=== PATIENT | female | born 1970 | race Caucasian/White ===

== ENCOUNTER 2018-05-04 13:58 | Emergency (ER) | payer BC, OTHER ==
[2018-05-04 14:17] VITALS: RESP 18; TEMP 97.8
[2018-05-04] MEDS ORDERED: SODIUM CHLORIDE 0.9% 1,000 ML IV STA (14:47)
[2018-05-04] MEDS ORDERED: KETOROLAC 30 MG/ML 1 ML VIAL IVP STA (14:47)
--- NOTE | 2018-05-04 14:54 | ED ---
Abdominal Pain HPI - General Chief Complaint: Abdominal Pain Stated Complaint: Pelvic pain Time Seen by Provider: 05/04/18 14:31 Source: patient, RN notes reviewed Mode of arrival: wheelchair Limitations: no limitations - History of Present Illness Initial Comments: This is a 47-year-old female who presents to the emergency department with chief complaint of lower abdominal/pelvic pain. Patient states on Thursday she developed lower abdominal pain. She states that it starts in the hip region and radiates to the groin. Pain is described as a sharp and stabbing. Today, while driving to work patient states that the pain became excruciating and she developed a pressure like sensation and burning to the vaginal area. She states it feels like "something is falling out, it feels like I'm giving . " She denies any fevers or chills, chest pain or shortness of breath, nausea or vomiting, diarrhea. Patient does report a history of total hysterectomy and appendectomy. Patient denies any medical issues. - Related Data Home Medications Medication Instructions Recorded Confirmed Estrogens, Conjugated [Premarin] 1.25 mg PO HS 05/04/18 05/04/18 Lisdexamfetamine Dimesylate 40 mg PO QAM 05/04/18 05/04/18 [Vyvanse] lamoTRIgine [LaMICtal] 100 mg PO HS 05/04/18 05/04/18 Allergies Allergy/AdvReac Type Severity Reaction Status Date / Time No Known Allergies Allergy Verified 05/04/18 14:50 Review of Systems ROS Statement: Those systems with pertinent positive or pertinent negative responses have been documented in the HPI. ROS Other: All systems not noted in ROS Statement are negative. Past Medical History Past Medical History: No Reported History History of Any Multi-Drug Resistant Organisms: None Reported Past Surgical History: Appendectomy, Hysterectomy Additional Past Surgical History / Comment(s): thyroid Past Psychological History: ADD/ADHD, Anxiety, Depression Smoking Status: Never smoker Past Alcohol Use History: Occasional Past Drug Use History: None Reported General Exam - General Exam Comments Initial Comments: General: Awake and alert, well-developed; in apparent distress due to pain. Patient is curled up in the position lying on her left side. is at bedside. HEENT: Head atraumatic, normocephalic. Pupils are equal, round and reactive to light. Extraocular movements intact. Oropharynx moist without erythema or exudate. Neck: Supple. Normal ROM. Cardiovascular: Regular rate and rhythm. No murmurs, rubs or gallops. Chest symmetrical. Respiratory: Lungs clear to auscultation bilaterally. No wheezes, rales or rhonchi. Normal respiratory effort with no use of accessory muscles. Abdomen: Soft, non-distended. Tenderness on palpation of right lower quadrant and suprapubic region with guarding. No rigidity. Hyperactive bowel sounds in all 4 quadrants. Musculoskeletal: Normal ROM, no tenderness bilateral upper and lower extremities. Skin: [place], warm and dry without rashes or lesions. Neurological: Alert and oriented x3. CN II-XII grossly intact. Speech is fluent and answers are appropriate. No focal neuro deficits. Psychiatric: Normal mood and affect. No overt signs of depression or anxiety noted. Limitations: no limitations External exam: Present: normal external exam. Absent: erythema, swelling, lesions, lacerations Speculum exam: Present: vaginal discharge (white, thin ). Absent: erythema, vaginal bleeding Course Vital Signs 05/04/18 14:12 Temperature 97.8 F Pulse Rate 75 Respiratory 18 Rate Blood Pressure 113/64 O2 Sat by Pulse 100 Oximetry Medical Decision Making - Medical Decision Making This is a 47-year-old female who presents to the emergency department with chief complaint of right-sided pelvic pain. Patient states pain has been present since Thursday and it worsened today. She reports pressure sensation to the vagina. On physical examination, there is exquisite tenderness on palpation of the right lower quadrant and suprapubic regions. Patient does have history of total hysterectomy and appendectomy. Speculum exam and bimanual revealed normal vaginal tissue with a thin white discharge and tenderness on palpation of the right vaginal wall. CBC, CMP and UA revealed no significant abnormalities. Patient was initially sent to the emergency department for evaluation of this pain and hematuria. Her primary care provider ordered an outpatient computed tomography scan of the abdomen and pelvis as well as an ultrasound of the renals and bladder. These revealed no significant abnormalities and no evidence of kidney stones. This case has been discussed in detail with attending physician, Dr. Miller. He was in contact with the radiologist who read the computed tomography scan report. The CT was again reviewed. Still, no abnormalities are noted. Patient does report improvement of symptoms with Toradol. Vital signs have been stable and she is in no acute distress. She will be discharged home at this time. Recommendation is to follow up with primary care provider as well as her [facility] within 1-2 days. She is in agreement with plan and voices understanding. All questions have been answered. - Lab Data Result diagrams: 05/04/18 15:00 05/04/18 15:00 Lab Results 05/04/18 05/04/18 05/04/18 Range/Units 15:00 15:00 15:00 WBC 5.4 (3.8-10.6) k/uL RBC 4.14 (3.80-5.40) m/uL Hgb 13.5 (11.4-16.0) gm/dL Hct 41.2 (34.0-46.0) % MCV 99.6 (80.0-100.0) fL MCH 32.6 (25.0-35.0) pg MCHC 32.8 (31.0-37.0) g/dL RDW 12.0 (11.5-15.5) % Plt Count 312 (150-450) k/uL Neutrophils % 51 % Lymphocytes % 39 % Monocytes % 6 % Eosinophils % 2 % Basophils % 0 % Neutrophils # 2.8 (1.3-7.7) k/uL Lymphocytes # 2.1 (1.0-4.8) k/uL Monocytes # 0.3 (0-1.0) k/uL Eosinophils # 0.1 (0-0.7) k/uL Basophils # 0.0 (0-0.2) k/uL Sodium 140 (137-145) mmol/L Potassium 4.3 (3.5-5.1) mmol/L Chloride 104 (98-107) mmol/L Carbon Dioxide 25 (22-30) mmol/L Anion Gap 11 mmol/L BUN 12 (7-17) mg/dL Creatinine 0.69 (0.52-1.04) mg/dL Est GFR (CKD-EPI)AfAm >90 (>60 ml/min/1.73 sqM) Est GFR (CKD-EPI)NonAf >90 (>60 ml/min/1.73 sqM) Glucose 84 (74-99) mg/dL Calcium 9.7 (8.4-10.2) mg/dL Total Bilirubin 0.7 (0.2-1.3) mg/dL AST 26 (14-36) U/L ALT 17 (9-52) U/L Alkaline Phosphatase 44 (38-126) U/L Total Protein 7.4 (6.3-8.2) g/dL Albumin 4.4 (3.5-5.0) g/dL Amylase 83 (30-110) U/L Lipase 173 (23-300) U/L Urine Color Yellow Urine Appearance Clear (Clear) Urine pH 7.5 (5.0-8.0) Ur Specific [place] 1.013 (1.001-1.035) Urine Protein Negative (Negative) Urine Glucose (UA) Negative (Negative) Urine Ketones Trace H (Negative) Urine Blood Negative (Negative) Urine Nitrite Negative (Negative) Urine Bilirubin Negative (Negative) Urine Urobilinogen <2.0 (<2.0) mg/dL Ur Leukocyte Esterase Negative (Negative) Disposition Clinical Impression: Pelvic pain Disposition: HOME SELF-CARE Condition: Good Instructions: Pelvic Pain in Women (ED) Additional Instructions: As discussed, please follow-up with your [facility] within 1-2 days. Please follow up with primary care provider within 1-2 days. Return to emergency department if symptoms should worsen or any concerns arise. Is patient prescribed a controlled substance at d/c from ED?: No Referrals: Paulina Rashid MD [Primary Care Provider] - 1-2 days Time of Disposition: 16:15
[2018-05-04 15:24] LABS: Appearance,Urine Clear (Clear); Bilirubin,Urine Negative (Negative); Blood,Urine Negative (Negative); Color,Urine Yellow; Glucose,Urine (UA) Negative (Negative); Ketones,Urine Trace (Negative); Leukocyte Esterase,Urine Negative (Negative); Nitrite,Urine Negative (Negative); PH, Urine 7.5 (5.0-8.0); Protein,Urine Negative (Negative); Specific Gravity,Urine 1.013 (1.001-1.035); Urobilinogen,Urine <2.0 mg/dL (<2.0)
[2018-05-04 15:26] LABS: Basophils % (A) 0 %; Eosinophils # (A) 0.1 k/uL (0-0.7); Eosinophils % (A) 2 %; HCT 41.2 % (34.0-46.0); HGB 13.5 gm/dL (11.4-16.0); Lymphocytes # (A) 2.1 k/uL (1.0-4.8); Lymphocytes % (A) 39 %; MCH 32.6 pg (25.0-35.0); MCHC 32.8 g/dL (31.0-37.0); MCV 99.6 fL (80.0-100.0); Mean Platelet Volume 6.7; Monocytes # (A) 0.3 k/uL (0-1.0); Monocytes % (A) 6 %; Neutrophils # (A) 2.8 k/uL (1.3-7.7); Neutrophils % (A) 51 %; Platelet Count 312 k/uL (150-450); RBC 4.14 m/uL (3.80-5.40); WBC 5.4 k/uL (3.8-10.6)
[2018-05-04 15:36] LABS: ALT 17 U/L (9-52); AST 26 U/L (14-36); Albumin 4.4 g/dL (3.5-5.0); Alkaline Phosphatase 44 U/L (38-126); Amylase 83 U/L (30-110); Anion Gap 11 mmol/L; Blood Urea Nitrogen 12 mg/dL (7-17); Calcium 9.7 mg/dL (8.4-10.2); Carbon Dioxide 25 mmol/L (22-30); Chloride 104 mmol/L (98-107); Glucose 84 mg/dL (74-99); Lipase 173 U/L (23-300); Potassium 4.3 mmol/L (3.5-5.1); Sodium 140 mmol/L (137-145); Total Bilirubin 0.7 mg/dL (0.2-1.3); Total Protein 7.4 g/dL (6.3-8.2)
[2018-05-04 16:55] VITALS: BP 127/83; PULSE 67
== END 2018-05-04 16:55 | disposition home or self-care (01) ==
LOC: EC 13:58
DX: R10.2 Pelvic and perineal pain (principal); F32.9 Major depressive disorder, single episode, unspecified; F90.9 Attention-deficit hyperactivity disorder, unspecified type; F41.9 Anxiety disorder, unspecified; Z90.49 Acquired absence of other specified parts of digestive tract; Z90.710 Acquired absence of both cervix and uterus; Z79.899 Other long term (current) drug therapy
CPT/HCPCS: 36415; 80053; 82150; 83690; 85025; 81003; 87086; 99284; 96374; 96361 ×2; J1885

== ENCOUNTER → 2018-05-04 | Outpatient (CLI) | payer BC, OTHER ==
--- NOTE | 2018-05-04 13:06 | CT ---
EXAMINATION TYPE: CT abdomen pelvis wo con DATE OF EXAM: 05/04/2018 COMPARISON: None HISTORY: 47-year-old female lower pelvic pain, nephrolithiasis CT DLP: 540.2 mGycm. Automated exposure control for dose reduction was used. TECHNIQUE: Contiguous axial scanning of the abdomen and pelvis without IV contrast. Coronal and sagit kaur reconstructions performed. FINDINGS: Heart normal size without pericardial effusion. Lung bases clear without pleural effusion. Noncontrast appearance of the liver shows a tiny subcentimeter probable cyst left liver lobe. Gallbladder, adrenal glands, kidneys, spleen, and pancreas show no gross abnormality by noncontrast C T. Specifically, no nephrolithiasis or hydronephrosis is seen. No dilated small bowel, free fluid, or free air. No mesenteric or retroperitoneal lymphadenopathy. There is mild scattered stool and mild left hemicolonic diverticulosis though greater in the sigmoid colon. No pericolonic inflammatory change. Bladder are distended. Uterus surgically absent. Neither ovary is clearly visualized. No abnormal flu id collection in the pelvis or pelvic lymphadenopathy. There may be some jejunal fold thickening in the left side of the abdomen, for example, axial image 6 1 and coronal image 21. Bones: No osseous destructive process. IMPRESSION: 1. There may be some jejunal fold thickening in the left side of the abdomen. Correlate for possible enteritis. 2. Left hemicolonic diverticulosis, greatest in the sigmoid colon. No evidence for acute diverticuli tis.
--- NOTE | 2018-05-04 13:12 | US ---
EXAMINATION TYPE: US renals and bladder DATE OF EXAM: 05/04/2018 COMPARISON: 05/04/2018 CT abdomen pelvis CLINICAL HISTORY: N20.0 nephrolithiasis; Renal stone protocol. right side pain EXAM MEASUREMENTS: Right Kidney: 9.6 x 4.7 x 3.7 cm Left Kidney: 10.1 x 4.5 x 5.3 cm Right Kidney: No hydronephrosis or masses seen Left Kidney: No hydronephrosis or masses seen Bladder: distended, wnl as visualized Right jet seen There is no evidence for hydronephrosis at this point in time. No nephrolithiasis is seen. No zita s are identified. The urinary bladder is anechoic. Bilateral ureteral jets are seen. IMPRESSION: No hydronephrosis or nephrolithiasis.
== END | disposition home or self-care (01) ==
LOC: RADCTMAIN 12:22
PROVIDERS: ATTEND Family Medicine
DX: K57.30 Diverticulosis of large intestine without perforation or abscess without bleeding (principal); N20.0 Calculus of kidney
CPT/HCPCS: 74176; 76770

== ENCOUNTER 2018-11-29 06:18 | Emergency (ER) | payer BC, OTHER ==
[2018-11-29] MEDS ORDERED: SODIUM CHLORIDE 0.9% 1,000 ML IV STA (07:06)
[2018-11-29] MEDS ORDERED: KETOROLAC 30 MG/ML 1 ML VIAL IVP STA (07:06)
--- NOTE | 2018-11-29 07:14 | ED ---
Abdominal Pain HPI - General Chief Complaint: Abdominal Pain Stated Complaint: abd pain Time Seen by Provider: 11/29/18 07:00 Source: patient, RN notes reviewed Mode of arrival: ambulatory Limitations: no limitations - History of Present Illness Initial Comments: 40-year-old female presents emergency Department chief complaint of right lower quadrant abdominal pain. Patient states it was sudden onset 1 hour prior arrival. Patient states that this is the worst pain she's had. She has no history kidney stones. She states she used to panic this when she gets large ovarian cyst though she states that she's had a total hysterectomy and prior appendectomy. Patient has no current dysuria, hematuria urinary frequency. Denies any change of bowel habits including diarrhea, constipation, melena or hematochezia. Patient has no current nausea vomiting. Patient states nothing makes the pain feel better or worse at this time. She did state that the pain started while she was driving. Patient has normal drug ALLERGIES. Patient states that there is minimal pain that radiates to her back. He states most of it's along her inner right pelvic region - Related Data Home Medications Medication Instructions Recorded Confirmed Estrogens, Conjugated [Premarin] 1.25 mg PO HS 05/04/18 11/29/18 Lisdexamfetamine Dimesylate 40 mg PO QAM PRN 05/04/18 11/29/18 [Vyvanse] lamoTRIgine [LaMICtal] 100 mg PO HS 05/04/18 11/29/18 Previous Rx's Medication Instructions Recorded Ibuprofen [Motrin] 600 mg PO Q8HR PRN #30 tab 11/29/18 Allergies Allergy/AdvReac Type Severity Reaction Status Date / Time No Known Allergies Allergy Verified 11/29/18 07:30 Review of Systems ROS Statement: Those systems with pertinent positive or pertinent negative responses have been documented in the HPI. ROS Other: All systems not noted in ROS Statement are negative. Past Medical History Past Medical History: No Reported History History of Any Multi-Drug Resistant Organisms: None Reported Past Surgical History: Appendectomy, Hysterectomy Additional Past Surgical History / Comment(s): thyroid Past Psychological History: ADD/ADHD, Anxiety, Depression Smoking Status: Never smoker Past Alcohol Use History: Occasional Past Drug Use History: None Reported General Exam Limitations: no limitations General appearance: alert, in no apparent distress Head exam: Present: atraumatic, normocephalic, normal inspection Respiratory exam: Present: normal lung sounds bilaterally. Absent: respiratory distress, wheezes, rales, rhonchi, stridor Cardiovascular Exam: Present: regular rate, normal rhythm, normal heart sounds. Absent: systolic murmur, diastolic murmur, rubs, gallop, clicks GI/Abdominal exam: Present: soft, tenderness (Mild to moderate right lower), normal bowel sounds. Absent: distended, guarding, rebound, rigid Back exam: Present: full ROM. Absent: tenderness, CVA tenderness (R), CVA tenderness (L) Neurological exam: Present: alert, oriented X3, CN II-XII intact Skin exam: Present: warm, dry, intact, normal color. Absent: rash Course Vital Signs 11/29/18 11/29/18 06:28 08:13 Temperature 98 F Pulse Rate 74 67 Respiratory 16 18 Rate Blood Pressure 120/80 130/82 O2 Sat by Pulse 98 99 Oximetry Medical Decision Making - Medical Decision Making 48-year-old female presents emergency Department for lower abdominal pain. Labs, urinalysis, CT of abdomen pelvis unremarkable. Patient had a prior appendectomy, hysterectomy complete. This may be muscle skeletal in nature versus adhesions. Patient will be discharged follow-up with PCP. Patient agrees this plan return parameters were discussed. - Lab Data Result diagrams: 11/29/18 06:45 11/29/18 06:45 Lab Results 11/29/18 11/29/18 11/29/18 Range/Units 06:45 06:45 08:15 WBC 4.0 (3.8-10.6) k/uL RBC 3.96 (3.80-5.40) m/uL Hgb 12.6 (11.4-16.0) gm/dL Hct 38.7 (34.0-46.0) % MCV 97.7 (80.0-100.0) fL MCH 31.7 (25.0-35.0) pg MCHC 32.4 (31.0-37.0) g/dL RDW 12.2 (11.5-15.5) % Plt Count 281 (150-450) k/uL Neutrophils % 47 % Lymphocytes % 39 % Monocytes % 8 % Eosinophils % 4 % Basophils % 1 % Neutrophils # 1.8 (1.3-7.7) k/uL Lymphocytes # 1.5 (1.0-4.8) k/uL Monocytes # 0.3 (0-1.0) k/uL Eosinophils # 0.1 (0-0.7) k/uL Basophils # 0.0 (0-0.2) k/uL Sodium 139 (137-145) mmol/L Potassium 4.5 (3.5-5.1) mmol/L Chloride 105 (98-107) mmol/L Carbon Dioxide 28 (22-30) mmol/L Anion Gap 6 mmol/L BUN 12 (7-17) mg/dL Creatinine 0.58 (0.52-1.04) mg/dL Est GFR (CKD-EPI)AfAm >90 (>60 ml/min/1.73 sqM) Est GFR (CKD-EPI)NonAf >90 (>60 ml/min/1.73 sqM) Glucose 81 (74-99) mg/dL Calcium 9.4 (8.4-10.2) mg/dL Total Bilirubin 0.2 (0.2-1.3) mg/dL AST 30 (14-36) U/L ALT 23 (9-52) U/L Alkaline Phosphatase 42 (38-126) U/L Total Protein 6.9 (6.3-8.2) g/dL Albumin 4.3 (3.5-5.0) g/dL Lipase 193 (23-300) U/L Urine Color Light Yellow Urine Appearance Clear (Clear) Urine pH 5.0 (5.0-8.0) Ur Specific [place] 1.011 (1.001-1.035) Urine Protein Negative (Negative) Urine Glucose (UA) Negative (Negative) Urine Ketones Negative (Negative) Urine Blood Negative (Negative) Urine Nitrite Negative (Negative) Urine Bilirubin Negative (Negative) Urine Urobilinogen <2.0 (<2.0) mg/dL Ur Leukocyte Esterase Negative (Negative) Disposition Clinical Impression: Abdominal pain Disposition: HOME SELF-CARE Condition: Stable Instructions (If sedation given, give patient instructions): Abdominal Pain (ED) Additional Instructions: Please return to the Emergency Department if symptoms worsen or any other con cerns. Prescriptions: Ibuprofen [Motrin] 600 mg PO Q8HR PRN #30 tab PRN Reason: Pain Is patient prescribed a controlled substance at d/c from ED?: No Referrals: Paulina Rashid MD [Primary Care Provider] - 1-2 days Time of Disposition: 09:10
[2018-11-29 07:17] LABS: Basophils % (A) 1 %; Eosinophils # (A) 0.1 k/uL (0-0.7); Eosinophils % (A) 4 %; HCT 38.7 % (34.0-46.0); HGB 12.6 gm/dL (11.4-16.0); Lymphocytes # (A) 1.5 k/uL (1.0-4.8); Lymphocytes % (A) 39 %; MCH 31.7 pg (25.0-35.0); MCHC 32.4 g/dL (31.0-37.0); MCV 97.7 fL (80.0-100.0); Mean Platelet Volume 6.5; Monocytes # (A) 0.3 k/uL (0-1.0); Monocytes % (A) 8 %; Neutrophils # (A) 1.8 k/uL (1.3-7.7); Neutrophils % (A) 47 %; Platelet Count 281 k/uL (150-450); RBC 3.96 m/uL (3.80-5.40); RDW 12.2 % (11.5-15.5)
[2018-11-29 07:30] LABS: ALT 23 U/L (9-52); AST 30 U/L (14-36); Albumin 4.3 g/dL (3.5-5.0); Alkaline Phosphatase 42 U/L (38-126); Anion Gap 6 mmol/L; Blood Urea Nitrogen 12 mg/dL (7-17); Calcium 9.4 mg/dL (8.4-10.2); Carbon Dioxide 28 mmol/L (22-30); Chloride 105 mmol/L (98-107); Glucose 81 mg/dL (74-99); Lipase 193 U/L (23-300); Potassium 4.5 mmol/L (3.5-5.1); Sodium 139 mmol/L (137-145); Total Bilirubin 0.2 mg/dL (0.2-1.3); Total Protein 6.9 g/dL (6.3-8.2)
[2018-11-29] MEDS ORDERED: ONDANSETRON 4 MG/2 ML VIAL IVP STA (07:39)
[2018-11-29] MEDS ORDERED: HYDROmorphone 0.5 MG/0.5 ML SYRINGE IVP STA (07:39)
--- NOTE | 2018-11-29 08:22 | CT ---
EXAMINATION TYPE: CT abdomen pelvis wo con DATE OF EXAM: 11/29/2018 COMPARISON: 05/04/2018 INDICATION: pelvic pain DLP: 371.6 mGycm, Automated exposure control for dose reduction was used. CONTRAST: 0 mL of Isovue 300. Study performed without Oral Contrast TECHNIQUE: Axial images were obtained from above the diaphragm to the pubic rami in the axial plane a t 5 mm thick sections. Reconstructed images are reviewed on the computer in the coronal plane. FINDINGS: Limited CT sections are obtained the lung bases. The lung bases are clear. CT ABDOMEN: Liver: Normal Spleen: Normal Pancreas: Normal Adrenal glands: The adrenal glands are normal. Gallbladder: Normal Kidneys: No masses are evident. No hydronephrosis is present. No cysts are present. No renal stone s are identified. Aorta: Normal Inferior vena cava: Normal. CT PELVIS: Loops of bowel within the abdomen and pelvis are normal. This study is performed without oral con trast limiting bowel evaluation. A few scattered diverticuli are within the sigmoid colon without ian dence of acute diverticulitis. Appendix: Not visualized, postsurgical. Urinary bladder: Normal. Genitourinary structures: Uterus is surgically absent. No free fluid is within the pelvis. Adnexal re gions are unremarkable. Osseous structures: No suspicious lytic or sclerotic lesions. No inguinal hernias are identified. Couple of tiny phleboliths appear to be within the pelvis and wer e present previously. IMPRESSIONS: 1. No suspicious abnormality within the right lower quadrant or pelvis to account for right groin pa in.
[2018-11-29 08:27] LABS: Appearance,Urine Clear (Clear); Bilirubin,Urine Negative (Negative); Blood,Urine Negative (Negative); Color,Urine Light Yellow; Glucose,Urine (UA) Negative (Negative); Ketones,Urine Negative (Negative); Leukocyte Esterase,Urine Negative (Negative); Nitrite,Urine Negative (Negative); Protein,Urine Negative (Negative); Specific Gravity,Urine 1.011 (1.001-1.035); Urobilinogen,Urine <2.0 mg/dL (<2.0)
[2018-11-29] MEDS ORDERED: ACET/COD 300 MG/30 MG STARTER PACK 6 TAB BTL PO STA (09:10)
[2018-11-29 09:40] VITALS: BP 132/87; PULSE 70; RESP 19; TEMP 98
== END 2018-11-29 09:42 | disposition home or self-care (01) ==
LOC: EC 06:18
DX: R10.2 Pelvic and perineal pain (principal); M54.5 Low back pain; F32.9 Major depressive disorder, single episode, unspecified; Z79.899 Other long term (current) drug therapy; Z90.49 Acquired absence of other specified parts of digestive tract; Z90.710 Acquired absence of both cervix and uterus; Z53.20 Procedure and treatment not carried out because of patient's decision for unspecified reasons
CPT/HCPCS: 99284; 96374; 96375; 96361; 36415; 80053; 83690; 85025; 81003; 74176; J1885; J1170

== ENCOUNTER → 2019-07-22 | Outpatient (CLI) | payer BC, OTHER ==
--- NOTE | 2019-07-22 13:38 | XR ---
EXAMINATION TYPE: XR shoulder complete BILAT DATE OF EXAM: 07/22/2019 CLINICAL HISTORY: Bilateral shoulder pain TECHNIQUE: Three views of the bilateral shoulders are obtained. COMPARISON: None. FINDINGS: There is no acute fracture/dislocation evident in either shoulder. Symmetric mild to moder ate narrowing bilateral acromioclavicular joints. Symmetric mild spurring. Distal acromion morphology unremarkable bilaterally. Mild narrowing glenohumeral joint left greater than right. The visualized ribs are intact and unremarkable bilaterally. Calcified granuloma right midlung noted. IMPRESSION: As above.
== END | disposition home or self-care (01) ==
LOC: RADXRMAIN 13:18
PROVIDERS: ATTEND Family Medicine
DX: M77.9 Enthesopathy, unspecified (principal); R93.7 Abnormal findings on diagnostic imaging of other parts of musculoskeletal system

== ENCOUNTER 2020-02-21 00:11 | Emergency (ER) | payer BC, OTHER ==
[2020-02-21 00:15] VITALS: TEMP 98.1
[2020-02-21] MEDS ORDERED: ASPIRIN 81 MG PO STA (00:18)
[2020-02-21 00:41] LABS: Basophils % (A) 1 %; Eosinophils # (A) 0.1 k/uL (0-0.7); Eosinophils % (A) 3 %; HCT 39.9 % (34.0-46.0); HGB 13.3 gm/dL (11.4-16.0); Lymphocytes % (A) 37 %; MCH 32.7 pg (25.0-35.0); MCHC 33.4 g/dL (31.0-37.0); MCV 97.9 fL (80.0-100.0); Monocytes # (A) 0.2 k/uL (0-1.0); Monocytes % (A) 4 %; Neutrophils # (A) 2.9 k/uL (1.3-7.7); Neutrophils % (A) 54 %; Platelet Count 287 k/uL (150-450); RBC 4.07 m/uL (3.80-5.40); RDW 12.5 % (11.5-15.5); WBC 5.4 k/uL (3.8-10.6)
[2020-02-21 00:50] LABS: ALT 13 U/L (4-34); AST 27 U/L (14-36); African American GFR (CKD) >90 (>60 ml/min/1.73 sqM); Albumin 4.5 g/dL (3.5-5.0); Alkaline Phosphatase 38 U/L (38-126); Anion Gap 10 mmol/L; Blood Urea Nitrogen 14 mg/dL (7-17); Calcium 10.1 mg/dL (8.4-10.2); Carbon Dioxide 26 mmol/L (22-30); Chloride 100 mmol/L (98-107); Glucose 100 mg/dL (74-99); Magnesium 1.9 mg/dL (1.6-2.3); Non-African American GFR(CKD) >90 (>60 ml/min/1.73 sqM); Potassium 4.1 mmol/L (3.5-5.1); Sodium 136 mmol/L (137-145); Total Bilirubin 0.4 mg/dL (0.2-1.3); Total Protein 7.1 g/dL (6.3-8.2)
--- NOTE | 2020-02-21 00:53 | XR ---
EXAMINATION TYPE: XR chest 2V DATE OF EXAM: 02/21/2020 COMPARISON: NONE HISTORY: Chest pain TECHNIQUE: FINDINGS: Heart is normal. Lungs are clear of infiltrate. There is no pleural effusion. There are no hilar masses. Bony thorax appears normal. There is 7 mm granuloma in the superior segment right lower lobe. IMPRESSION: No active cardiopulmonary disease. Normal heart.
--- NOTE | 2020-02-21 00:59 | ED ---
Chest Pain HPI - General Chief Complaint: Chest Pain Stated Complaint: Chest pain Time Seen by Provider: 02/21/20 00:18 Source: patient Mode of arrival: wheelchair Limitations: no limitations - History of Present Illness Initial Comments: Melissa is a previously healthy 49-year-old female who presents the ER today for evaluation of persistent chest pain throughout the day today. Patient reports that this morning she was sitting at her computer when she developed some pain in her left-sided rib cage. She cannot identify any exacerbating or relieving f actors to the pain. It didn't seem to be positional to was worse with certain movements and deep breaths. Pain is not associated with any palpitations, shortness of breath, lightheadedness, diaphoresis. Pain is not worse with exertion. Pain does not relieve with rest. Patient has been persistent for approximately 16 hours. Patient didn't take any medications for the pain she didn't try heat, ice Tylenol or Motrin. She reports tonight she is having trouble sleeping due to the discomfort in the setting come to the ER for further evaluation. She has no history of hypertension, hyperlipidemia or diabetes. No family history of heart disease. She has no history of clotting disorder family history of clotting disorders DVTs or PEs. She is a nonsmoker. - Related Data Home Medications Medication Instructions Recorded Confirmed Estrogens, Conjugated [Premarin] 1.25 mg PO HS 05/04/18 11/29/18 Lisdexamfetamine Dimesylate 40 mg PO QAM PRN 05/04/18 11/29/18 [Vyvanse] lamoTRIgine [LaMICtal] 100 mg PO HS 05/04/18 11/29/18 Previous Rx's Medication Instructions Recorded Ibuprofen [Motrin] 600 mg PO Q8HR PRN #30 tab 11/29/18 Allergies Allergy/AdvReac Type Severity Reaction Status Date / Time No Known Allergies Allergy Verified 02/21/20 00:15 Review of Systems ROS Statement: Those systems with pertinent positive or pertinent negative responses have been documented in the HPI. ROS Other: All systems not noted in ROS Statement are negative. EKG Findings - EKG Comments: EKG Findings:: EKG was obtained due to complaint of chest pain, EKG was obtained at 12:23 AM, rate is 80 rhythm is sinus there is a normal axis, normal intervals, ID [id number], QRS 86, QTC is 442 there are no acute ST elevations or depressions there is no evidence of acute ischemia or infarction. Past Medical History Past Medical History: Thyroid Disorder History of Any Multi-Drug Resistant Organisms: None Reported Past Surgical History: Appendectomy, Hysterectomy Additional Past Surgical History / Comment(s): thyroid Past Psychological History: ADD/ADHD, Anxiety, Depression Smoking Status: Never smoker Past Alcohol Use History: Occasional Past Drug Use History: None Reported General Exam - General Exam Comments Initial Comments: Physical Exam GENERAL: Patient is well-developed and well-nourished. Patient is nontoxic and well- hydrated and is in no distress. HENT: Normocephalic, Atraumatic. EYES: PERRL, EOMI PULMONARY: Unlabored respirations. No audible rales rhonchi or wheezing was noted. CARDIOVASCULAR: There is a regular rate and rhythm without any murmurs gallops or rubs. ABDOMEN: Soft and nontender with normal bowel sounds. SKIN: Skin is clear with no lesions or rashes and otherwise unremarkable. : Deferred NEUROLOGIC: Patient is alert and oriented x3. Moving all extremities spontaneously MUSCULOSKELETAL: Normal extremities with adequate strength and full range of motion. No lower extremity swelling or edema. No calf tenderness. PSYCHIATRIC: Normal psychiatric evaluation. Limitations: no limitations Course Vital Signs 02/21/20 00:13 Temperature 98.1 F Pulse Rate 82 Respiratory 20 Rate Blood Pressure 156/84 O2 Sat by Pulse 99 Oximetry Chest Pain MDM - MDM The patient was seen and evaluated, history is obtained from the patient at bedside 49-year-old female with no risk factors for ACS or risk factors for DVT or PE presenting with what seems to be musculoskeletal or pleuritic left-sided chest pain Initial vital signs were reviewed, patient mildly hypertensive, normal heart rate, no hypoxia EKG was obtained there is no ischemic findings Chest x-ray was unremarkable Labs no significant abnormalities d-dimer is not elevated, troponin is not elevated considering the patient's had constant pain for greater than 16 hours with no elevation of troponin I feel we can adequately rule out acute coronary syndrome No evidence of ACS, pericarditis, myocarditis, pulmonary embolism, pneumothorax, pneumonia, Zoster, or esophageal perforation. Historically not abrupt in onset, tearing or ripping, pulses symmetric, no evidence of aortic dissection. Patient was reevaluated results were discussed she states expresses relief that there are no acute findings and is comfortable with the plan for discharge home, supportive care and outpatient follow-up and return parameters were discussed all questions pertaining care were answered to the best of my ability the patient was discharged home in stable condition. Disposition Clinical Impression: Atypical chest pain Disposition: HOME SELF-CARE Condition: Stable Instructions (If sedation given, give patient instructions): Chest Pain (ED) Is patient prescribed a controlled substance at d/c from ED?: No Referrals: Paulina Rashid MD [Primary Care Provider] - 1-2 days
[2020-02-21 01:07] LABS: D-Dimer 0.22 mg/L FEU (<0.60); INR 0.9 (<1.2); Prothrombin Time 9.7 sec (9.0-12.0)
[2020-02-21 01:11] LABS: Partial Thromboplastin Time 21.4 sec (22.0-30.0)
[2020-02-21 02:23] VITALS: BP 128/79; PULSE 68; RESP 21
== END 2020-02-21 02:29 | disposition home or self-care (01) ==
LOC: EC 00:11
DX: R07.89 Other chest pain (principal); I10 Essential (primary) hypertension; F90.9 Attention-deficit hyperactivity disorder, unspecified type; F32.9 Major depressive disorder, single episode, unspecified; F41.9 Anxiety disorder, unspecified; Z79.890 Hormone replacement therapy; Z79.899 Other long term (current) drug therapy
CPT/HCPCS: 36415; 71046; 80053; 83735; 84484; 85025; 85379; 85610; 85730; 93005; 99285

== ENCOUNTER → 2020-09-28 | Outpatient (CLI) | payer BC, OTHER ==
--- NOTE | 2020-10-08 10:10 | MM ---
Reason for exam: screening (asymptomatic). Last mammogram was performed 4 years ago. History: Patient is postmenopausal. Taking estrogen beginning at age 32. Physical Findings: A clinical breast exam by your physician is recommended on an annual basis and results should be correlated with mammographic findings. MG 3D Screening Mammo W/Cad Bilateral CC and MLO view(s) were taken. Prior study comparison: October 03, 2016, mammogram, performed at [facility]. May 18, 2014, mammogram, performed at [facility]. The breast tissue is extremely dense which could obscure a lesion on mammography. There is no discrete abnormality. No significant changes when compared with prior studies. ASSESSMENT: Negative, BI-RAD 1 RECOMMENDATION: Routine screening mammogram of both breasts in 1 year.
== END | disposition home or self-care (01) ==
LOC: RADMAMWWP 08:00
PROVIDERS: ATTEND Family Medicine
DX: Z12.31 Encounter for screening mammogram for malignant neoplasm of breast (principal)
CPT/HCPCS: 77063; 77067

== ENCOUNTER 2021-05-01 07:09 | Emergency (ER) | payer BC ==
[2021-05-01 07:22] VITALS: PULSE 72; RESP 18; TEMP 97.8
[2021-05-01] MEDS ORDERED: methylPREDNISolone SOD SUCCI 125 MG/2 ML VIAL IM ONE (07:31)
[2021-05-01] MEDS ORDERED: MORPHINE SULFATE 4 MG/ML SYRINGE IM STA (07:31)
--- NOTE | 2021-05-01 08:30 | XR ---
EXAMINATION TYPE: XR lumbar spine 2 or 3V DATE OF EXAM: 05/01/2021 CLINICAL HISTORY: pain TECHNIQUE: Three views of the lumbar spine are submitted. COMPARISON: None. FINDINGS: There are 5 lumbar type vertebral bodies identified. The lumbar spine shows satisfactory alignment w ithout evidence of acute fracture or dislocation. Vertebral body heights are within normal limits. Disc spaces are within normal limits. The overlying soft tissue appears unremarkable. IMPRESSION: No acute fracture or dislocation is seen in the lumbar spine. ICD 10 NO FRACTURE, INITIAL EVALUATION
[2021-05-01] MEDS ORDERED: HYDROmorphone 1 MG/ML 1 ML SYRINGE IM STA (08:40)
--- NOTE | 2021-05-01 08:44 | ED ---
Back Pain HPI - General Chief Complaint: Back Pain/Injury Stated Complaint: Back Pain Time Seen by Provider: 05/01/21 07:25 Source: patient, RN notes reviewed Limitations: no limitations - History of Present Illness Initial Comments: Patient is a 50-year-old female that presents to the emergency department complaining of low back pain that is chronic for the past several months. She notes that she's been going to a chiropractor with no relief. She notes that she does not take any pain medications for. She notes that she has radicular symptoms down both legs. She denied any saddle anesthesia, bladder or bowel incontinence/retention. She denied any injury or trauma to her back. She was otherwise a well-appearing 50-year-old female. She noted that her pain was approximately an 8-9 out of 10 with no relief. She notes that she has not followed up with a management development specialist or orthopedic surgeon. Patient denied any chest pain shortness of breath headache nausea vomiting diarrhea constipation fever fatigue chills. - Related Data Home Medications Medication Instructions Recorded Confirmed Estrogens, Conjugated [Premarin] 1.25 mg PO HS 05/04/18 11/29/18 Lisdexamfetamine Dimesylate 40 mg PO QAM PRN 05/04/18 11/29/18 [Vyvanse] lamoTRIgine [LaMICtal] 100 mg PO HS 05/04/18 11/29/18 Previous Rx's Medication Instructions Recorded Ibuprofen [Motrin] 600 mg PO Q8HR PRN #30 tab 11/29/18 predniSONE 50 mg PO DAILY #5 tab 05/01/21 Allergies Allergy/AdvReac Type Severity Reaction Status Date / Time No Known Allergies Allergy Verified 05/01/21 07:18 Review of Systems ROS Statement: Those systems with pertinent positive or pertinent negative responses have been documented in the HPI. ROS Other: All systems not noted in ROS Statement are negative. Past Medical History Past Medical History: Thyroid Disorder History of Any Multi-Drug Resistant Organisms: None Reported Past Surgical History: Appendectomy, Hysterectomy Additional Past Surgical History / Comment(s): thyroid Past Psychological History: ADD/ADHD, Anxiety, Depression Smoking Status: Never smoker Past Alcohol Use History: Occasional Past Drug Use History: Marijuana General Exam Limitations: no limitations General appearance: alert, in no apparent distress Head exam: Present: atraumatic, normocephalic, normal inspection Eye exam: Present: normal appearance, PERRL, EOMI. Absent: scleral icterus, conjunctival injection, periorbital swelling ENT exam: Present: normal exam, mucous membranes moist Neck exam: Present: normal inspection Respiratory exam: Present: normal lung sounds bilaterally. Absent: respiratory distress, wheezes, rales, rhonchi, stridor Cardiovascular Exam: Present: regular rate, normal rhythm, normal heart sounds. Absent: systolic murmur, diastolic murmur, rubs, gallop, clicks Extremities exam: Present: normal inspection, full ROM, normal capillary refill. Absent: tenderness, pedal edema, joint swelling, calf tenderness Back exam: Present: normal inspection, tenderness (Bilateral lumbar spine/SI) Neurological exam: Present: alert, oriented X3 Psychiatric exam: Present: normal affect, normal mood Skin exam: Present: warm, dry, intact, normal color. Absent: rash Course Vital Signs 05/01/21 07:18 Temperature 97.8 F Pulse Rate 72 Respiratory 18 Rate Blood Pressure 130/77 O2 Sat by Pulse 100 Oximetry Medical Decision Making - Medical Decision Making 50-year-old female complaining of bilateral low back pain with no injury or trauma. X-ray lumbar spine, 125 mg Solu-Medrol, 4 g of morphine ordered. X-ray shows no acute fractures or dislocations. Due to continued pain patient was given 1 more milligram of Dilaudid. Patient will be given referral to orthopedic back specialist. Case discussed with Dr. Roberson, patient discharge home follow-up primary care and energy specialist. - Radiology Data Radiology results: report reviewed, image reviewed X-ray lumbar spine: No acute fracture dislocation is seen and lumbar spine. Disposition Clinical Impression: Strain of lumbar region, Sciatica Disposition: HOME SELF-CARE Condition: Stable Instructions (If sedation given, give patient instructions): Acute Low Back Pain (ED) Additional Instructions: Please return to the Emergency Department if symptoms worsen or any other concerns. Follow-up primary care 1-2 days. Follow-up with energy specialist as soon as possible. Continue take Tylenol Motrin as needed for pain. Is patient prescribed a controlled substance at d/c from ED?: No Referrals: Paulina Rashid MD [Primary Care Provider] - 1-2 days Parrish Huggins DO [Doctor of Osteopathic Medicine] - 1-2 days Time of Disposition: :43
[2021-05-01 09:34] VITALS: BP 117/62
== END 2021-05-01 09:33 | disposition home or self-care (01) ==
LOC: EC 07:09
DX: S39.012A Strain of muscle, fascia and tendon of lower back, initial encounter (principal); M54.31 Sciatica, right side; M54.32 Sciatica, left side; X58.XXXA Exposure to other specified factors, initial encounter
CPT/HCPCS: 99283 ×2; 96372 ×4; 72100; J2270; J2930; J1170